=== PATIENT | male | born 1995 | race African-American/Black ===

== ENCOUNTER 2017-07-21 22:07 | Emergency (ER) | payer SELFPAY ==
[2017-07-21 22:30] VITALS: TEMP 98.6; BMI 15.3
--- NOTE | 2017-07-21 22:36 | PDOC ---
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 Pt states he was upset and swung his arm quickly resulting in dislocation. Pt states that he has chronic tingling in his hand because of the prior nerve injury. No other complaints. Pt states pain is 8/10 after 5mg morphine en route to hospital. <Derek Khan - Last Filed: 07/22/17 04:30> <Jorge Fan - Last Filed: 07/22/17 04:36> - General Chief Complaint: Shoulder Dislocation Stated Complaint: RIGHT SHOULDER PAIN Time Seen by Provider: 07/21/17 22:21 Past History - Past Medical History Asthma: Yes - Surgical History Abdominal Surgery: Yes (HERNIA X 2) - Immunization History Immunization Up to Date: Yes - Suicide/Smoking/Psychosocial Hx Smoking Status: No Smoking History: Unknown if ever smoked Have you smoked in the past 12 months: No Number of Cigarettes Smoked Daily: 0 Information on smoking cessation initiated: No Hx Alcohol Use: No Drug/Substance Use Hx: No Substance Use Type: None <Derek Khan - Last Filed: 07/22/17 04:30> <Jorge Fan - Last Filed: 07/22/17 04:36> - Past Medical History Allergies/Adverse Reactions: Allergies Allergy/AdvReac Type Severity Reaction Status Date / Time No Known Drug Allergies Allergy Verified 07/22/17 00:31 shellfish derived AdvReac Vomiting Verified 07/21/17 22:28 NUTS Allergy Swelling Uncoded 07/21/17 22:28 Home Medications: Ambulatory Orders NK [No Known Home Medication] 07/22/17 Review of Systems - Review of Systems Able to Perform ROS?: Yes Is the patient limited Chinese proficient: No Constitutional: Yes: Symptoms Reported, See HPI. No: Chills, Diaphoresis, Fever HEENTM: Yes: Symptoms Reported. No: Blurred Vision Respiratory: Yes: Symptoms reported. No: Cough, Shortness of Breath, Wheezing Cardiac (ROS): Yes: Symptoms Reported. No: Chest Pain ABD/GI: Yes: Symptoms Reported. No: Abdominal cramping : Yes: Symptoms Reported. No: Burning, Dysuria Musculoskeletal: Yes: Symptoms Reported, Joint Pain (right shoulder) Integumentary: Yes: Symptoms Reported. No: Erythema, Flushing, Pallor, Rash Neurological: Yes: Symptoms reported, Numbness, Tingling (right medial arm and hand) <Derek Khan - Last Filed: 07/22/17 04:30> *Physical Exam - Vital Signs Last Vital Signs Temp Pulse Resp BP Pulse Ox 98.6 F 70 14 122/76 100 07/21/17 22:29 07/21/17 22:29 07/21/17 22:29 07/21/17 22:29 07/21/17 22:29 - Physical Exam General Appearance: Yes: Nourished, Appropriately Dressed, Apparent Distress, Moderate Distress (due to pain) HEENT: positive: EOMI, MONSERRAT Neck: positive: Supple Respiratory/Chest: positive: Lungs Clear, Normal Breath Sounds. negative: Chest Tender Cardiovascular: positive: Regular Rhythm, Regular Rate, S1, S2. negative: Edema , JVD, Murmur Vascular Pulses: Dorsalis-Pedis (R): 2+, Doralis-Pedis (L): 2+ Gastrointestinal/Abdominal: positive: Normal Bowel Sounds, Flat, Soft. negative : Tender, Organomegaly Musculoskeletal: positive: Decreased Range of Motion (right shoulder immoble due to pain) Extremity: positive: Tender (right shoulder) Neurologic: positive: assembler fitter II-XII NML intact, Fully Oriented, Alert, Normal Mood/ Affect, Numbness (right arm & hand), Sensory Deficit (right arm & hand, brenden distal medial ring finger). negative: Motor Strength 5/5 <Derek Khan - Last Filed: 07/22/17 04:30> - Vital Signs Last Vital Signs Temp Pulse Resp BP Pulse Ox 98.6 F 67 17 115/70 100 07/21/17 22:29 07/22/17 03:58 07/22/17 03:58 07/22/17 03:58 07/22/17 03:58 <Jorge Fan - Last Filed: 07/22/17 04:36> ED Treatment Course - Medications Given in the ED: ED Medications Discontinued Medications Generic Name Dose Route Start Last Admin Trade Name Freq PRN Reason Stop Dose Admin Diazepam 5 mg 07/21/17 23:01 07/22/17 00:35 Valium Injection - IVPUSH 07/21/17 23:02 Not Given ONCE ONE Diazepam 5 mg 07/22/17 00:12 07/22/17 00:35 Valium - PO 07/22/17 00:13 5 mg ONCE ONE Administration Ketamine HCl 70 mg 07/22/17 01:53 07/22/17 02:57 Ketalar - IVPUSH 07/22/17 01:54 70 mg ONCE ONE Administration Lorazepam 1 mg 07/22/17 02:59 07/22/17 03:07 Ativan Injection - IVPUSH 07/22/17 03:00 1 mg ONCE ONE Administration Lorazepam 1 mg 07/22/17 03:04 07/22/17 03:07 Ativan Injection - IVPUSH 07/22/17 03:05 1 mg ONCE ONE Administration Morphine Sulfate 2 mg 07/21/17 23:01 07/22/17 00:35 Morphine Injection - IVPUSH 07/21/17 23:02 2 mg ONCE ONE Administration <Jorge Fan - Last Filed: 07/22/17 04:36> Medical Decision Making - Medical Decision Making 07/21/17 22:38 Pt is a 21 M w/ PMH shoulder dislocation and shoulder surgery presents with shoulder dislocation. Pt is in severe pain. -right shoulder deformity -R shoulder xray -pain control -will reduce 07/22/17 03:30 shoulder dislocation reduced under ketamine. Confirmed in socket by xray. <Derek Khan - Last Filed: 07/22/17 04:30> *DC/Admit/Observation/Transfer - Discharge Dispostion Admit: No <Derek Khan - Last Filed: 07/22/17 04:30> <Jorge Fan - Last Filed: 07/22/17 04:36> Diagnosis at time of Disposition: Shoulder dislocation Qualifiers: Encounter type: subsequent encounter Laterality: right Qualified Code(s): S43.004D - Unspecified dislocation of right shoulder joint, subsequent encounter Shoulder dislocation, recurrent Qualifiers: Laterality: right Qualified Code(s): M24.411 - Recurrent dislocation, right shoulder - Discharge Dispostion Disposition: HOME - Referrals Referrals: Jorge Avalos MD [Staff Physician] - - Patient Instructions Printed Discharge Instructions: DI for Shoulder Dislocation Additional Instructions: Keep your arm in the shoulder immobilizer until you are able to follow up with an orthopedic surgeon. Call the number provided to make an appointment with our orthopedics clinic within 1 week. If you experience any increased pain, weakness, numbness, or any other concerning symptoms, return to the ER immediately.
[2017-07-21] MEDS ORDERED: diazePAM CARPU-JECT 10 MG/2 ML DISP.SYRIN IVPUSH ONE (23:01)
[2017-07-21] MEDS ORDERED: morphine CARPU-JECT 2 MG/1 ML DISP.SYRIN IVPUSH ONE (23:01)
[2017-07-22] MEDS ORDERED: morphine CARPU-JECT 10 MG/1 ML DISP.SYRIN ONE (00:11)
[2017-07-22] MEDS ORDERED: diazePAM 5 MG TABLET PO ONE (00:12)
[2017-07-22] MEDS ORDERED: diazePAM 5 MG TABLET ONE (00:14)
--- NOTE | 2017-07-22 01:03 | PDOC ---
Attending Attestation - Resident Resident Name: Derek Khan - ED Attending Attestation I have performed the following: I have examined & evaluated the patient, The case was reviewed & discussed with the resident, I agree w/resident's findings & plan, Exceptions are as noted - HPI HPI: 07/22/17 01:01 21 M with h/o recurrent R shoulder dislocations presents to ER with acute R shoulder pain. Pt states that he was swinging his arm while upset and states that as he brought it down, he felt it pop out. Pt denies any numbness/weakness to his RUE. Denies trauma. - Physicial Exam PE: 07/22/17 01:02 "GENERAL: Awake, alert, and fully oriented, in no acute distress HEAD: No signs of trauma EYES: PERRLA, EOMI, sclera anicteric, conjunctiva clear ENT: Auricles normal inspection, hearing grossly normal, nares patent, oropharynx clear without exudates. Moist mucosa NECK: Nontender, no stepoffs, Normal ROM, supple, no lymphadenopathy, JVD, or masses LUNGS: Breath sounds equal, clear to auscultation bilaterally. No wheezes, and no crackles HEART: Regular rate and rhythm, normal S1 and S2, no murmurs, rubs or gallops ABDOMEN: Soft, nontender, normoactive bowel sounds. No guarding, no rebound. No masses EXTREMITIES: R shoulder with flattening of deltoid, no numbness over deltoid, sensation and strength intact distally NEUROLOGICAL: Cranial nerves II through XII intact. 5/5 strength and sensation in all extremities, Normal speech, normal gait SKIN: Warm, Dry, normal turgor, no rashes or lesions noted. " - Medical Decision Making 07/22/17 01:02 21 M with R shoulder deformity after swinging his arm. Likely R shoulder dislocation. - XR - Pain control 07/22/17 04:32 XR with anterior shoulder dislocation. Pt given ketamine 1mg/kg for procedural sedation. Shoulder reduced using traction/counter traction Post-reduction film obtained showing successful reduction of shoulder. Pt placed in shoulder immobilizer. Procedures - Joint Reduction Right Joint Reduction Site: right: Shoulder Pre-Procedure NV Exam: normal Conscious Sedation: Yes (ketamine) Reduction Attempts: 1 Procedure: Traction Counter Traction Post-Procedure NV Exam: normal Complications: No Post Joint Reduction Film: joint reduced Immobilized: Yes
[2017-07-22] MEDS ORDERED: KETAMINE HCL 200 MG/20 ML VIAL IVPUSH ONE (01:53)
[2017-07-22] MEDS ORDERED: KETAMINE HCL 200 MG/20 ML VIAL ONE (02:42)
[2017-07-22] MEDS ORDERED: LORazepam 2 MG/ML SDV VIAL ONE (03:03)
[2017-07-22 06:40] VITALS: BP 115/70; PULSE 67
== END 2017-07-22 05:39 | disposition home or self-care (01) ==
LOC: JER 22:07
PROC: 0RSJXZZ Reposition Right Shoulder Joint, External Approach (ICD-10-PCS; principal; 2017-07-21)
DX: S43.004D Unspecified dislocation of right shoulder joint, subsequent encounter (principal); M24.411 Recurrent dislocation, right shoulder; J45.909 Unspecified asthma, uncomplicated
CPT/HCPCS: 73030-TC-RT; 99282-25